=== PATIENT | female | born 2000 | race Caucasian/White ===

== ENCOUNTER 2022-10-20 11:50 | Observation (INO) | payer OTHER, MEDICAID ==
[~2022-10-20] VITALS: Ht 160 cm; Wt 72.6 kg
[2022-10-20 12:00] VITALS: BP 129/75
[2022-10-20 13:47] LABS: BARBITURATE, URINE NEGATIVE ng/ml (NEG <=200); BENZODIAZEPINE, URINE NEGATIVE ng/mL (NEG <=200); CANNABINOID, URINE NEGATIVE ng/mL (NEG <=50); COCAINE, URINE NEGATIVE ng/mL (NEG <=300); OPIATE, URINE NEGATIVE ng/mL (NEG <=2000); PHENCYCLIDINE SCREEN,URINE NEGATIVE ng/mL (NEG <=25)
[2022-10-20] MEDS ORDERED: PNV91TAB8 PO (13:49)
[2022-10-21 12:08] LABS: HEPATITIS B SURFACE ANTIGEN Negative (Negative)
== END 2022-10-20 14:20 | disposition home or self-care (01) ==
LOC: MLD 11:50
PROVIDERS: ADMIT Obstetrics & Gynecology; ATTEND Obstetrics & Gynecology
DX: O62.9 Abnormality of forces of labor, unspecified (principal); Z20.822 Contact with and (suspected) exposure to COVID-19; Z3A.40 40 weeks gestation of pregnancy
CPT/HCPCS: 36415; 80305; 81000; 86592; 86703; 86762; 86886; 86900; 86901; 87340; 87426; 87653; G0378

== ENCOUNTER 2022-10-22 00:40 | Inpatient (IN) | payer OTHER, MEDICAID ==
[~2022-10-22] VITALS: Ht 160 cm; Wt 74.8 kg
[~2022-10-22 00:40] MED LIST: PNV91TAB8 PO
[2022-10-22 00:54] VITALS: BP 124/75
[2022-10-22] MEDS ORDERED: CHOL1CTB1 PO (01:24)
[2022-10-22] MEDS ORDERED: OXYTOCIN 10 UNITS/ML VIAL IM SCH (01:25)
[2022-10-22] MEDS ORDERED: METHYLERGONOVINE 0.2 MG/ML AMP IM PRN ×2 (01:25→13:15)
[2022-10-22] MEDS ORDERED: ONDANSETRON 4 MG/2 ML VIAL IVP PRN (01:25)
[2022-10-22] MEDS ORDERED: AMPICILLIN 2,000 MG in NACL 0.9% MINI-BAG PLUS 100 ML IV SCH (01:25)
[2022-10-22] MEDS ORDERED: MORPHINE SULFATE 5 MG/ML VIAL IVP PRN (01:25)
[2022-10-22] MEDS ORDERED: CARBOPROST 250 MCG/ML AMP IM PRN (01:25)
[2022-10-22 02:00] LABS: APPEARANCE,URINE CLEAR (CLEAR); BILIRUBIN,URINE NEGATIVE (NEGATIVE); BLOOD, URINE NEGATIVE (NEGATIVE); COLOR,URINE YELLOW (YELLOW); LEUKOCYTE ESTERASE ,URINE NEGATIVE (NEGATIVE); NITRITE, URINE NEGATIVE (NEGATIVE); PH,URINE 6.5 (5.0-9.0); UGLUCOSE NEGATIVE (NEGATIVE)
[2022-10-22 02:05] LABS: PROTHROMBIN TIME 9.3 secs (10.8-13.4)
[2022-10-22 02:08] LABS: ALBUMIN 2.4 g/dL (3.4-5.0); ANION GAP 11.1 (8-16); CREATININE 0.7 mg/dL (0.6-1.3); POTASSIUM 4.1 mmol/L (3.5-5.1); TOTAL BILIRUBIN 0.2 mg/dL (0.0-1.0)
[2022-10-22] MEDS: LACTATED RINGERS 1,000 ML IV SCH ×2 (02:12→07:45)
[2022-10-22 02:14] LABS: BASOPHILS # (AUTO) 0.1 K/uL (0.00-0.22); BASOPHILS % (AUTO) 0.7 % (0.0-2.0); EOSINOPHILS # (AUTO) 0.3 K/uL (0-0.4); EOSINOPHILS % (AUTO) 2.7 % (0.0-4.0); HEMATOCRIT 35.3 % (36-48); HEMOGLOBIN 12.1 g/dL (12.0-16.0); LYMPHOCYTES % (AUTO) 30.4 % (20.5-51.1); MEAN CORPUSCULAR HEMOGLOBIN 32 pg (27-31); MEAN CORPUSCULAR HGB CONC 34 g/dL (33-37); MEAN CORPUSCULAR VOLUME 92.4 fL (80-94); MONOCYTES # (AUTO) 0.9 K/uL (0.8-1.0); MONOCYTES % (AUTO) 8.8 % (1.7-9.3); NEUTROPHILS # (AUTO) 5.7 K/uL (1.8-7.7); NEUTROPHILS % (AUTO) 57.4 % (42.2-75.2); PLATELET COUNT (AUTO) 295 K/uL (140-450); RED BLOOD CELL COUNT(AUTO) 3.82 MIL/uL (4.20-5.40); RED CELL DISTRIBUTION WIDTH 14.9 % (11.6-13.7); WHITE BLOOD COUNT (AUTO) 9.9 K/uL (4.8-10.8)
[2022-10-22] MEDS ORDERED: MORPHINE SULFATE 10 MG/ML VIAL ONE ×2 (02:27→05:23)
[2022-10-22 02:35] LABS: BARBITURATE, URINE NEGATIVE ng/ml (NEG <=200); BENZODIAZEPINE, URINE NEGATIVE ng/mL (NEG <=200); CANNABINOID, URINE NEGATIVE ng/mL (NEG <=50); COCAINE, URINE NEGATIVE ng/mL (NEG <=300); OPIATE, URINE NEGATIVE ng/mL (NEG <=2000); PHENCYCLIDINE SCREEN,URINE NEGATIVE ng/mL (NEG <=25)
[2022-10-22] MEDS ORDERED: AMPICILLIN 1,000 MG in NACL 0.9% MINI-BAG PLUS 50 ML IV SCH (04:00)
[2022-10-22 05:28] VITALS: BP 117/69
[2022-10-22] MEDS ORDERED: AMPICILLIN 2,000 MG VIAL ONE (06:00)
[2022-10-22] MEDS ORDERED: fentaNYL citrate 0.05 MG/ML VIAL ONE (07:31)
[2022-10-22] MEDS ORDERED: ROPIVACAINE 0.2%/NS PREMIX 200 ML EPI ONE (07:31)
[2022-10-22] MEDS ORDERED: OXYTOCIN 20 UNITS/LR PREMIX 1,000 ML IV ONE (08:43)
--- NOTE | 2022-10-22 08:44 | NUR ---
PATIENT HAS BEEN SCREENED AND CATEGORIZED LOW NUTRITION RISK. PATIENT WILL BE SEEN WITHIN 7 DAYS OF ADMISSION. 10/22/22-10/27/22 REVIEWED BY H[address]
[2022-10-22] MEDS ORDERED: OXYTOCIN 20 UNITS in LACTATED RINGERS 1,000 ML IV SCH (09:05)
[2022-10-22] MEDS ORDERED: IBUPROFEN 800 MG TAB PO PRN (13:15)
[2022-10-22] MEDS ORDERED: METHYLERGONOVINE 0.2 MG TAB PO PRN (13:15)
[2022-10-22] MEDS ORDERED: OXYTOCIN 10 UNITS/ML VIAL IM PRN (13:15)
[2022-10-22] MEDS ORDERED: BENZOCAINE/MENTHOL 20%-0.5% 60 GM CAN TP PRN (13:15)
[2022-10-22] MEDS ORDERED: MEASLES, MUMPS, AND RUBELLA 1 VIAL SQVAC ONE (13:15)
[2022-10-22] MEDS ORDERED: MEASLES, MUMPS, AND RUBELLA 1 VIAL SQVAC PRN (13:20)
[2022-10-23 05:48] LABS: HEMATOCRIT 34.6 % (36-48); HEMOGLOBIN 11.8 g/dL (12.0-16.0)
[2022-10-23] MEDS ORDERED: IBUP-2217 PO (14:35)
== END 2022-10-23 15:32 | disposition home or self-care (01) | DRG 807 ==
LOC: MLD 00:40 → OBSVTOIN 01:32 → MFCC 13:05
PROVIDERS: ADMIT Obstetrics & Gynecology; ATTEND Obstetrics & Gynecology
PROC: 10E0XZZ Delivery of Products of Conception, External Approach (ICD-10-PCS; principal; 2022-10-22)
PROC: 3E0R3BZ Introduction of Anesthetic Agent into Spinal Canal, Percutaneous Approach (ICD-10-PCS; 2022-10-22)
PROC: 00HU33Z Insertion of Infusion Device into Spinal Canal, Percutaneous Approach (ICD-10-PCS; 2022-10-22)
DX: O99.824 Streptococcus B carrier state complicating childbirth (principal); Z37.0 Single live birth; Z3A.40 40 weeks gestation of pregnancy; Z20.822 Contact with and (suspected) exposure to COVID-19
CPT/HCPCS: 36415; 51702; 59409; 76805; 80053; 80305; 81003; 85018; 85025; 85610; 85730; J0290; J2210; J2270; J2405; J2590; J2795; J3010; J7120; Q0092